=== PATIENT | male | born 1960 | race Native Hawaiian/Other Pacific Islander ===

== ENCOUNTER 2016-05-16 19:20 | Emergency (ER) | payer OTHER ==
[~2016-05-16] VITALS: Ht 167.6 cm; Wt 108.9 kg
[2016-05-16 20:42] LABS: PLATELET COUNT 359 K/uL (142-355)
[2016-05-16 20:55] LABS: POTASSIUM 3.5 mmol/L (3.6-5.2); SODIUM 132 mmol/L (136-145)
[2016-05-16 23:01] VITALS: BP 149/71; TEMP 98.9
== END 2016-05-16 23:02 | disposition home or self-care (01) ==
LOC: ED 19:20
DX: K59.09 Other constipation (principal); K65.4 Sclerosing mesenteritis; E11.9 Type 2 diabetes mellitus without complications
CPT/HCPCS: 80053; 81000; 83036; 85027; 96360; 99283

== ENCOUNTER 2017-06-11 13:09 | Outpatient (CLI) | payer OTHER | END 2017-06-11 13:14 | disposition short-term general hospital (02) | LOC: AMB 13:09 | DX: R42 Dizziness and giddiness (principal) | CPT/HCPCS: A0425; A0429 ==

== ENCOUNTER 2017-06-11 13:19 | Emergency (ER) | payer OTHER ==
[~2017-06-11] VITALS: Ht 165.1 cm; Wt 108.9 kg
[2017-06-11 14:24] VITALS: BP 120/78; TEMP 98.1
== END 2017-06-11 14:32 | disposition home or self-care (01) ==
LOC: ED 13:19
DX: R51 Headache (principal); W01.198A Fall on same level from slipping, tripping and stumbling with subsequent striking against other object, initial encounter; Y92.89 Other specified places as the place of occurrence of the external cause
CPT/HCPCS: 99282

== ENCOUNTER 2017-09-26 02:24 | Emergency (ER) | payer OTHER ==
[~2017-09-26] VITALS: Ht 167.6 cm; Wt 104.3 kg
[2017-09-26 02:54] VITALS: BP 108/69; TEMP 98.3
== END 2017-09-26 02:55 | disposition home or self-care (01) ==
LOC: ED 02:24
DX: B35.3 Tinea pedis (principal); T14.8XXA Other injury of unspecified body region, initial encounter; W57.XXXA Bitten or stung by nonvenomous insect and other nonvenomous arthropods, initial encounter
CPT/HCPCS: 99281

== ENCOUNTER 2017-10-21 20:35 | Emergency (ER) | payer OTHER ==
[~2017-10-21] VITALS: Ht 167.6 cm; Wt 79.4 kg
[2017-10-21] MEDS ORDERED: METF500T PO (20:56)
[2017-10-21 20:58] VITALS: BP 117/71; TEMP 98.4
== END 2017-10-21 21:02 | disposition home or self-care (01) ==
LOC: ED 20:35
DX: R03.1 Nonspecific low blood-pressure reading (principal)
CPT/HCPCS: 99281

== ENCOUNTER 2018-11-25 14:26 | Outpatient (CLI) | payer OTHER ==
[~2018-11-25 14:26] MED LIST: METF500T PO
== END 2018-11-25 22:19 | disposition home or self-care (01) ==
LOC: US 14:26
DX: R22.1 Localized swelling, mass and lump, neck (principal)